=== PATIENT | female | born 2000 | race African-American/Black ===

== ENCOUNTER 2019-10-17 21:25 | Emergency (ER) | payer MEDICAID, OTHER ==
[~2019-10-17] VITALS: Ht 162.6 cm; Wt 77.0 kg
[2019-10-17 21:43] VITALS: BP 118/62
[2019-10-17 23:37] LABS: CLARITY URINE CLEAR (CLEAR); COLOR URINE YELLOW (YELLOW); KETONES URINE TRACE (NEGATIVE); LEUKOCYTE ESTERASE URINE NEGATIVE (NEGATIVE); NITRITE URINE NEGATIVE (NEGATIVE); OCCULT BLOOD URINE TRACE (NEGATIVE); PH URINE 5.5 (4.5-8.0); PROTEIN URINE TRACE (NEGATIVE); SPECIFIC GRAVITY URINE 1.039 (1.005-1.030)
== END 2019-10-18 00:09 | disposition home or self-care (01) ==
LOC: ER 21:25
DX: N93.0 Postcoital and contact bleeding (principal)
CPT/HCPCS: 81003; 81025; 99283